=== PATIENT | female | born 1995 | race African-American/Black ===

== ENCOUNTER 2019-02-11 15:08 | Observation (INO) | payer OTHER ==
[2019-02-11] VITALS (10 sets, daily range): BP systolic 93–112; BP diastolic 40–58
[~2019-02-11] VITALS: Ht 160 cm; Wt 81.2 kg
[2019-02-11] MEDS ORDERED: ceFAZolin 2GM PREMIX 2 GM/50 ML BAG IV ONE (16:00)
[2019-02-11] MEDS ORDERED: miSOPROStol 200 MCG TABLET ONE (16:14)
[2019-02-11] MEDS ORDERED: VASOPRESSIN 20 UNIT/ML VIAL. ONE (16:16)
[2019-02-11] MEDS ORDERED: OXYTOCIN 10 UNIT/ML VIAL. ONE (16:16)
[2019-02-11 16:25] LABS: BASO % 0 % (0-3); EOS # 0.2 x10^3/uL (0.0-0.7); EOS % 2 % (0-3); HEMATOCRIT 35.7 % (36.0-47.0); LYMPH # 1.7 x10^3/uL (1.0-4.8); LYMPH % 23 % (24-48); MEAN CORPUSCULAR HEMOGLOBIN 30 pg (25-35); MEAN CORPUSCULAR HGB CONC 34 g/dL (31-37); MEAN CORPUSCULAR VOLUME 89 fL (79-100); MONO # 0.5 x10^3/uL (0.0-1.1); MONO % 6 % (0-9); NEUT # 5.2 x10^3uL (1.8-7.7); NEUT % 69 % (31-73); PLATELET COUNT 192 x10^3/uL (140-400); RED BLOOD COUNT 4.03 x10^6/uL (3.50-5.40); RED CELL DISTRIBUTION WIDTH 12.6 % (11.5-14.5); WHITE BLOOD COUNT 7.5 x10^3/uL (4.0-11.0)
[2019-02-11] MEDS ORDERED: IV RINGERS,LACTATED 1000ML 1,000 ML IV SCH (16:56)
[2019-02-11] MEDS ORDERED: fentaNYL PF VIAL 100 MCG/2 ML VIAL IV PRN ×2 (17:00)
[2019-02-11] MEDS ORDERED: PROCHLORPERAZINE 10 MG/2 ML VIAL. IV PRN ×2 (17:00→18:00)
[2019-02-11] MEDS ORDERED: ONDANSETRON PF 4 MG/2 ML VIAL. IV PRN ×2 (17:00→18:00)
[2019-02-11] MEDS ORDERED: MORPHINE SULFATE 2 MG/ML VIAL. IV PRN (17:00)
[2019-02-11] MEDS ORDERED: HYDROmorphone 2 MG/ML VIAL IV PRN (17:00)
[2019-02-11] MEDS ORDERED: LIDOCAINE 2% PF 5 ML VIAL. ONE (17:44)
[2019-02-11] MEDS ORDERED: PROPOFOL 20 ML IV ONE (17:44)
[2019-02-11] MEDS ORDERED: ONDANSETRON PF 4 MG/2 ML VIAL. ONE (17:45)
[2019-02-11] MEDS ORDERED: KETOROLAC 30 MG/ML INJ FOR OR. INJ ONE (17:45)
[2019-02-11] MEDS ORDERED: SEVOFLURANE 16 TO 30 MINUTES. IH ONE (17:45)
[2019-02-11] MEDS ORDERED: DEXAMETHASONE SOD PHOS 4 MG/ML VIAL ONE (17:45)
--- NOTE | 2019-02-11 17:52 | PDOC ---
BRIEF OPERATIVE NOTE Date: Feb 11, 2019 Pre-Op Diagnosis 7 wks Incomplete Post-Op Diagnosis Same Procedure Performed Suction D&C Surgeon Dr. Perdomo Anesthesia Type: General Blood Loss 100 ml Specimens Obtained POC Findings POC Complications none Operative Note see dictation DWIGHT PERDOMO Jr, MD Feb 11, 2019 17:52
[2019-02-11] MEDS ORDERED: fentaNYL PF VIAL 100 MCG/2 ML VIAL ONE (17:58)
[2019-02-11] MEDS ORDERED: DEXTROSE 50% 25 GM / 50ML DISP.SYRIN. IV PRN (18:00)
[2019-02-11] MEDS ORDERED: ZOLPIDEM 5 MG TABLET. PO PRN (18:00)
[2019-02-11] MEDS ORDERED: SIMETHICONE 80 MG TAB.CHEW PO PRN (18:00)
[2019-02-11] MEDS ORDERED: diphenhydrAMINE HCL 25 MG CAPSULE PO PRN (18:00)
[2019-02-11] MEDS ORDERED: oxyCODONE/APAP 5/325 1 TAB TABLET PO PRN (18:00)
[2019-02-11] MEDS ORDERED: CALCIUM CARBONATE 500 MG TAB.CHEW PO PRN (18:00)
[2019-02-11] MEDS ORDERED: 0.9 % SODIUM CHLORIDE 10 ML DISP.SYRIN. IV PRN (18:00)
[2019-02-11] MEDS ORDERED: diphenhydrAMINE 50 MG/ML VIAL IV PRN (18:00)
[2019-02-11] MEDS ORDERED: KETOROLAC 30 MG/ML VIAL. IV PRN (18:00)
--- NOTE | 2019-02-11 18:12 | OP ---
DATE OF SURGERY: 02/11/2019 PREOPERATIVE DIAGNOSIS: Seven weeks incomplete . POSTOPERATIVE DIAGNOSIS: Seven weeks incomplete . PROCEDURE: Suction D and C. SURGEON: Dwight Perdomo MD ANESTHESIA: GETA. ESTIMATED BLOOD LOSS: 100 mL. COMPLICATIONS: None. FINDINGS: Products of conception. SUMMARY: A 23-year-old 3, para 1, A1 at about 7 weeks' gestation who had a 5 days' worth of irregular vaginal bleeding with passage of large blood clots. The patient was seen in Dr. Collnis's clinic today and evaluated and was found to have active vaginal bleeding. Sonogram indicated products of conception still left in the uterus. The decision was made to proceed with suction D and C due to the active bleeding. The patient was taken to the hospital, counseled on the risks, benefits and expectations of suction D and C and desired to proceed. DESCRIPTION OF PROCEDURE: The patient was taken to surgery suite and placed in dorsal lithotomy position. She was prepped with Betadine solution and draped in a sterile fashion. After adequate anesthesia, a weighted speculum and curved Sonido placed vaginally. The anterior lip of the cervix grasped with single tooth tenaculum. There was small amount of tissue removed with the ring forceps at the cervix and lower uterine segment. A 7 mm curved tip suction curette was then passed using a pressure of 55 cmHg, removing further products of conception and blood clot and blood products. This was rotated in a circumferential manner. Sharp curettage took place until a fine gritty surface was palpated circumferentially. Suction curette was passed once again to remove additional products of conception and blood products. Single tooth tenaculum and weighted speculum removed. The uterus palpated firm. The patient tolerated the procedure well and was taken to recovery room in stable condition. Sponge and needle count correct x 3. DWIGHT PERDOMO MD DR: WINSTON/tigist JOB#: [id number] / [id number]
[2019-02-11] MEDS: GABAPENTIN 300 MG CAPSULE. PO SCH (22:00)
[2019-02-12 01:00] VITALS: BP 93/54
[2019-02-12] MEDS: GABAPENTIN 300 MG CAPSULE. PO SCH (05:47)
[2019-02-12 06:06] LABS: BASO % 0 % (0-3); EOS % 0 % (0-3); HEMATOCRIT 33.8 % (36.0-47.0); HEMOGLOBIN 11.4 g/dL (12.0-15.5); LYMPH # 1.1 x10^3/uL (1.0-4.8); LYMPH % 14 % (24-48); MEAN CORPUSCULAR HEMOGLOBIN 30 pg (25-35); MEAN CORPUSCULAR HGB CONC 34 g/dL (31-37); MEAN CORPUSCULAR VOLUME 89 fL (79-100); MONO # 0.4 x10^3/uL (0.0-1.1); MONO % 5 % (0-9); NEUT # 6.5 x10^3uL (1.8-7.7); NEUT % 81 % (31-73); PLATELET COUNT 190 x10^3/uL (140-400); RED BLOOD COUNT 3.81 x10^6/uL (3.50-5.40); RED CELL DISTRIBUTION WIDTH 12.6 % (11.5-14.5)
[2019-02-12 06:07] VITALS: BP 90/48
[2019-02-12 10:00] VITALS: BP 90/62
[2019-02-12 15:30] VITALS: BP 99/58
--- NOTE | 2019-02-12 15:44 | PDOC ---
SURGICAL PROGRESS NOTE Subjective Pt. feeling well. No complaints. Vital Signs Vital Signs Date Time Temp Pulse Resp B/P (MAP) Pulse Ox O2 Delivery O2 Flow Rate FiO2 02/12/19 10:00 98.4 63 18 90/62 (71) 100 Room Air 98.4 I&O Intake and Output 02/12/19 07:00 Intake Total 1590 ml Output Total 1200 ml Balance 390 ml Intake Oral 1060 ml Other 530 ml Output Urine Total 1100 ml Estimated Blood Loss 100 ml # Voids 2 PATIENT HAS A CUMMINGS: No General: Alert, Oriented X3, Cooperative HEENT: Atraumatic Lungs: Clear to auscultation Heart: Regular rate Abdomen: Normal bowel sounds, Soft, No tenderness, No masses Psych/Mental Status: Mental status NL Labs Laboratory Tests Test 02/11/19 16:17 02/12/19 04:53 White Blood Count 7.5 x10^3/uL (4.0-11.0) 8.0 x10^3/uL (4.0-11.0) Red Blood Count 4.03 x10^6/uL (3.50-5.40) 3.81 x10^6/uL (3.50-5.40) Hemoglobin 12.0 g/dL (12.0-15.5) 11.4 g/dL (12.0-15.5) Hematocrit 35.7 % (36.0-47.0) 33.8 % (36.0-47.0) Mean Corpuscular Volume 89 fL (79-100) 89 fL (79-100) Mean Corpuscular Hemoglobin 30 pg (25-35) 30 pg (25-35) Mean Corpuscular Hemoglobin Concent 34 g/dL (31-37) 34 g/dL (31-37) Red Cell Distribution Width 12.6 % (11.5-14.5) 12.6 % (11.5-14.5) Platelet Count 192 x10^3/uL (140-400) 190 x10^3/uL (140-400) Neutrophils (%) (Auto) 69 % (31-73) 81 % (31-73) Lymphocytes (%) (Auto) 23 % (24-48) 14 % (24-48) Monocytes (%) (Auto) 6 % (0-9) 5 % (0-9) Eosinophils (%) (Auto) 2 % (0-3) 0 % (0-3) Basophils (%) (Auto) 0 % (0-3) 0 % (0-3) Neutrophils # (Auto) 5.2 x10^3uL (1.8-7.7) 6.5 x10^3uL (1.8-7.7) Lymphocytes # (Auto) 1.7 x10^3/uL (1.0-4.8) 1.1 x10^3/uL (1.0-4.8) Monocytes # (Auto) 0.5 x10^3/uL (0.0-1.1) 0.4 x10^3/uL (0.0-1.1) Eosinophils # (Auto) 0.2 x10^3/uL (0.0-0.7) 0.0 x10^3/uL (0.0-0.7) Basophils # (Auto) 0.0 x10^3/uL (0.0-0.2) 0.0 x10^3/uL (0.0-0.2) Laboratory Tests Test 02/11/19 16:17 02/12/19 04:53 White Blood Count 7.5 x10^3/uL (4.0-11.0) 8.0 x10^3/uL (4.0-11.0) Red Blood Count 4.03 x10^6/uL (3.50-5.40) 3.81 x10^6/uL (3.50-5.40) Hemoglobin 12.0 g/dL (12.0-15.5) 11.4 g/dL (12.0-15.5) Hematocrit 35.7 % (36.0-47.0) 33.8 % (36.0-47.0) Mean Corpuscular Volume 89 fL (79-100) 89 fL (79-100) Mean Corpuscular Hemoglobin 30 pg (25-35) 30 pg (25-35) Mean Corpuscular Hemoglobin Concent 34 g/dL (31-37) 34 g/dL (31-37) Red Cell Distribution Width 12.6 % (11.5-14.5) 12.6 % (11.5-14.5) Platelet Count 192 x10^3/uL (140-400) 190 x10^3/uL (140-400) Neutrophils (%) (Auto) 69 % (31-73) 81 % (31-73) Lymphocytes (%) (Auto) 23 % (24-48) 14 % (24-48) Monocytes (%) (Auto) 6 % (0-9) 5 % (0-9) Eosinophils (%) (Auto) 2 % (0-3) 0 % (0-3) Basophils (%) (Auto) 0 % (0-3) 0 % (0-3) Neutrophils # (Auto) 5.2 x10^3uL (1.8-7.7) 6.5 x10^3uL (1.8-7.7) Lymphocytes # (Auto) 1.7 x10^3/uL (1.0-4.8) 1.1 x10^3/uL (1.0-4.8) Monocytes # (Auto) 0.5 x10^3/uL (0.0-1.1) 0.4 x10^3/uL (0.0-1.1) Eosinophils # (Auto) 0.2 x10^3/uL (0.0-0.7) 0.0 x10^3/uL (0.0-0.7) Basophils # (Auto) 0.0 x10^3/uL (0.0-0.2) 0.0 x10^3/uL (0.0-0.2) Assessment/Plan A: POD#1 s/p Suction D&C P: D/c home. DWIGHT GLEASON Jr, MD Feb 12, 2019 15:44
[2019-02-12] MEDS ORDERED: OXYC1TAB15 PO (15:45)
--- NOTE | 2019-02-12 15:46 | DISCH ---
DISCHARGE INSTRUCTIONS Condition on Discharge Condition on Discharge: Stable Activity After Discharge Activity Instructions for Disc: Activity as tolerated Lifting Instructions after Dis: No heavy lifting Driving Instructions after Dis: Do not drive today Diet after Discharge Diet after Discharge: Regular Contacting the DRTing after DC Call your doctor for: Concerns you may have Follow-Up Follow up with: Dr. Collins in 1 week. DWIGHT GLEASON Jr, MD Feb 12, 2019 15:46
--- NOTE | 2019-02-16 16:06 | PATHOLOGY ---
[facility] Accession Number: [id number] . 01 Material submitted: . product of conception - PRODUCTS OF CONCEPTION . 01 Clinical history: . Incomplete AB . 02 Diagnosis: Intrauterine contents, removal: - Secretory endometrium and scant chorionic villi present. (SKM:melonie; 02/16/2019) QMS/02/16/2019 . 02 Electronically signed: . Arturo Summers MD, Pathologist NPI- [id number] . 01 Gross description: . The specimen is received in formalin, labeled "Shekhar Dominique, products of conception" and consists of abundant clot and villous lamas-brown tissue measuring 7.7 x 6.3 x 1.0 cm in aggregate. No vesicular structures or parts identified. 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 (SDY; 02/12/2019) SYU/SYU . 02 Pathologist provided ICD-10: O03.4 . 02 CPT . 217120 Specimen Comment: A courtesy copy of this report has been sent to Specimen Comment: [phone]. Specimen Comment: Report sent to Performed at: [facility] [address], [place] [id number] MD Azael Ibarra MD Phone: [phone] Performed at: [facility] [address], [place] [id number] MD Francois James MD Phone: [phone]
== END 2019-02-12 16:30 | disposition home or self-care (01) ==
LOC: 3 NORTH 15:08
PROVIDERS: ADMIT Obstetrics & Gynecology; ATTEND Obstetrics & Gynecology
DX: O03.4 Incomplete spontaneous abortion without complication (principal); Z3A.01 Less than 8 weeks gestation of pregnancy
CPT/HCPCS: 36415; 58120; 85025; 86850; 86900; 86901; 88305; A7015; G0378; G0379; J0696; J1100; J1885; J2001; J2704; J2405; J2590; J3490

== ENCOUNTER 2021-11-29 10:10 | Emergency (ER) | payer OTHER ==
[~2021-11-29] VITALS: Ht 160 cm; Wt 90.1 kg
[~2021-11-29 10:10] MED LIST: OXYC1TAB15 PO
[2021-11-29 10:15] VITALS: BP 138/74
[2021-11-29 11:12] LABS: BACTERIA,URINE FEW /HPF (0-FEW); RBC,URINE OCC /HPF (0-2)
--- NOTE | 2021-11-29 11:19 | PHYS DOC ---
Past Medical History Past Medical History: No Pertinent History Additional Past Medical Histor: insomnia, chronic back pain Past Surgical History: Other Additional Past Surgical Histo: D&C Smoking Status: Never Smoker Alcohol Use: None Drug Use: None General Adult EDM: Chief Complaint: OTHER COMPLAINTS HPI: HPI: Patient is a 26 year old female presents to the emergency department with chief complaint of not sleeping since April 2021. Patient states she was prescribed trazodone which did not seem to help so she quit taking it "several months ago ", patient reports she was also given a prescription for Seroquel stating she did not fill this prescription because she does not like to take pills. Patient has not followed up with her primary care physician at [facility] since being prescribed these medications. Patient states she is having difficulty eating was only able to eat 2 bites of chicken this morning as she feels full afterwards patient is worried she might have diabetes stating there are some people in her family that have diabetes however she is not sure whether this type II or type I. 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 Patient denies vaginal discharge, rashes or lesions to her vagina, denies STI concerns, denies increased urinary frequency, urinary pressure, urinary burning or pain or other dysuria, denies hematuria. Patient denies abdominal pain, nausea, vomiting, diarrhea. Patient denies chest pains, chest or nasal congestion, denies shortness of breath. Patient denies dizziness or visual disturbances, denies homicidal or suicidal ideation. Pat ient states her main concern is that has been hard to sleep, stating "I feel like a machine I keep going on it on and it is hard to stop". Patient denies other physical complaints or physical concerns. Review of Systems: Review of Systems: 14 body systems of review of systems have been reviewed. See HPI for pertinent positives and negative responses, otherwise all other systems are negative, nonpertinent or noncontributory. Constitutional: Negative except as outlined in HPI above. Skin: Negative except as outlined in HPI above. Eyes: Negative except as outlined in HPI above. HENT: Negative except as outlined in HPI above. Respiratory: Negative except as outlined in HPI above. Cardiovascular: Negative except as outlined in HPI above. GI: Negative except as outlined in HPI above. : Negative except as outlined in HPI above. Musculoskeletal: Negative except as outlined in HPI above. Integument: Negative except as outlined in HPI above. Neurologic: Negative except as outlined in HPI above. Endocrine: Negative except as outlined in HPI above. Lymphatic: Negative except as outlined in HPI above. Psychiatric: Negative except as outlined in HPI above. Heart Score: C/O Chest Pain: No Risk Factors: Risk Factors: DM, Current or recent (<one month) smoker, HTN, HLP, family history of CAD, obesity. Risk Scores: Score 0 - 3: 2.5% MACE over next 6 weeks - Discharge Home Score 4 - 6: 20.3% MACE over next 6 weeks - Admit for Clinical Observation Score 7 - 10: 72.7% MACE over next 6 weeks - Early Invasive Strategies Allergies: Allergies: Allergies Coded Allergies Type Severity Reaction Last Updated Verified No Known Drug Allergies 11/29/21 No Physical Exam: PE: Constitutional: Well developed, well nourished, no acute distress, non-toxic appearance. 26-year-old female in no apparent distress. HENT: Normocephalic, atraumatic. Oropharynx moist, pink, no deep tissue infectious process appreciated. Bilateral TMs intact and within normal limits, no lymphadenopathy of the head or neck appreciated. Eyes: Conjunctiva normal, no discharge. No scleral icterus appreciated. Neck: Normal range of motion, no stridor. Cardiovascular: No cyanosis appreciated, distal cap refill less than 2 seconds. Lungs & Thorax: Patient is in no respiratory distress, lung sounds are clear to auscultation, normal work of breathing. Abdomen: Nontender, no abnormalities noted. Skin: Warm, dry, no erythema, no rash. Back: No tenderness, no deformities. Extremities: No tenderness, no cyanosis, no clubbing, ROM intact, no edema. Neurologic: Alert and oriented X 3, normal motor function, normal sensory function, no focal deficits noted. Psychologic: Affect normal, judgement normal, mood normal. Patient remained calm during HPI and physical examination, the patient did not present in a manic state. Current Patient Data: Labs: Laboratory Tests Test 11/29/21 10:26 11/29/21 10:40 11/29/21 10:46 Glucose (Fingerstick) 98 mg/dL Urine Collection Type Void Urine Color (Auto) Yellow Urine Turbidity Clear Urine pH (Auto) 6.0 Urine Specific [place] 1.028 Urine Protein (Auto) Negative mg/dL Urine Glucose (Auto)(UA) Negative mg/dL Urine Ketones (Auto) 10 mg/dL Urine Blood (Auto) Negative Urine Nitrite Negative Urine Bilirubin (Auto) Negative Urine Urobilinogen (Auto) 3 mg/dL Urine Leukocyte Esterase (Auto) Negative Urine RBC Occ /HPF Urine WBC 1-4 /HPF Urine Squamous Epithelial Cells Few /LPF Urine Bacteria Few /HPF Urine Mucus Marked /LPF Bedside Urine HCG, Qualitative Hcg negative Laboratory Tests Test 11/29/21 10:26 11/29/21 10:46 Glucose (Fingerstick) 98 mg/dL (70-99) POC Urine HCG, Qualitative Hcg negative (Negative) Vital Signs: Vital Signs Date Time Temp Pulse Resp B/P (MAP) Pulse Ox O2 Delivery O2 Flow Rate FiO2 11/29/21 10:15 99.1 87 16 138/74 (95) 98 Room Air 99.1 EKG: EKG: [] Radiology/Procedures: Radiology/Procedures: [] Course & Med Decision Making: Course & Med Decision Making Pertinent Labs and Imaging studies reviewed. (See chart for details) 26-year-old female, vital signs reviewed, presents with emergency department concerning worried about having diabetes, had a abnormally short menstrual cycle this month, difficulty sleeping since April 2022. Patient's physical examination is unremarkable, the patient reports being prescribed trazodone and Seroquel however does not take these medications, the patient does not present in a manic state. The patient's urine is not infected, she is not per urine test. Patient's bedside fingerstick blood glucose equals 98. The patient's vital signs are within normal limits. Discussed findings with patient, recommended patient follow-up with her GEAR CUTTING MACHINE OPERATOR specialist regarding family-planning and wanting to get . Recommended patient see her primary care physician at [facility] this week to review sy mptoms and treatment options. Reviewed return to ER precautions and concerns. Patient gave verbal understanding of and is amenable to ED discharge planning. Discussed with the patient all findings and diagnostic testing as well as the need to follow-up with their primary care provider for further evaluation and treatment or return to the ED if any new or worsening symptoms. Strict return precautions were also discussed at length, the patient voiced understanding and agreement with the discharge planning. The patient was nontoxic in appearance, in no apparent distress, and hemodynamically stable at the time of disposition. Ant Disclaimer: Ant Disclaimer: This electronic medical record was generated, in whole or in part, using a voice recognition dictation system. Departure Departure Impression: Primary Impression: Difficulty sleeping Additional Impressions: Abnormal menstrual cycle Feeling worried Disposition: HOME / SELF CARE / HOMELESS Condition: GOOD Referrals: ALYCIA RICE MD (PCP) DWIGHT GLEASON Jr., MD Additional Instructions: You were seen today in the emergency department for worries of having diabetes, and abnormal menstrual cycle this month, and difficulty sleeping. Your urine sample was not infected, you are not per urine test. Your blood sugar is 98 and does not indicate that you have diabetes. You had indicated you were trying to become . As we discussed please follow-up with your GEAR CUTTING MACHINE OPERATOR Dr. Gleason to discuss family-planning. It is important that you follow-up with your primary care physician at [facility] to discuss your ongoing difficulty sleeping symptoms. Please call today tomorrow for an appointment soon. Thank you for visiting our Emergency Department. It was a pleasure taking care of you today in the emergency department and we appreciate you trusting us with your care. If any additional problems come up don't hesitate to return to visit us. Please follow up with your primary care provider so they can plan additional care if needed and know about the problem that you had. If symptoms worsen come back to the Emergency Department. Any concerning symptoms that start such as chest pain, shortness of air, weakness or numbness on one side of the body, running high fevers or any other concerning symptoms return to the ER. KANDACE FERNANDEZ APRN Nov 29, 2021 11:19
== END 2021-11-29 11:26 | disposition home or self-care (01) ==
LOC: ER 10:10
DX: G47.00 Insomnia, unspecified (principal); G89.29 Other chronic pain; N92.6 Irregular menstruation, unspecified; R45.82 Worries
CPT/HCPCS: 81001; 81025; 82962; 99283